=== PATIENT | male | born 1990 | race Caucasian/White ===

== ENCOUNTER 2020-03-11 08:43 | Outpatient (REF) | payer MEDICARE, MEDICAID, SELFPAY ==
[2020-03-11 09:17] LABS: MANUAL DIFF FLAG NO
[2020-03-11 09:23] LABS: Basophils Absolute Auto 0.1 X10*3/uL (0.0-0.2); Basophils Percent Auto 0.7 % (0-2); Eosinophils Absolute Auto 0.2 X10*3/uL (0.0-0.4); Eosinophils Percent Auto 2.5 % (0-4); Hematocrit 44.5 % (42-52); Hemoglobin 15.1 g/dl (14.0-18.0); Imm Gran Abs Auto 0.03 X10*3/uL (0.00-0.03); Imm Gran Pct Auto 0.4 % (0.0-0.4); Lymphocytes Absolute Auto 2.1 X10*3/uL (1.2-4.9); Lymphocytes Percent Auto 28.3 % (20-40); Mean Corpuscular HGB Conc 33.9 g/dl (31.0-36.0); Mean Corpuscular Hemoglobin 30.1 pg (27.0-33.0); Mean Corpuscular Volume 88.6 fL (80-98); Mean Platelet Volume 8.4 fL (9.4-12.4); Monocytes Absolute Auto 0.7 X10*3/uL (0.1-1.2); Monocytes Percent Auto 9.4 % (2-11); Neutrophils Absolute Auto 4.3 X10*3/uL (2.0-8.3); Neutrophils Percent Auto 58.7 % (45-73); Platelet Count 227 X10*3/uL (160-400); Red Blood Count 5.02 X10*6/uL (4.60-5.80); Red Cell Distribution Width 12.2 % (11.0-16.0); White Blood Count 7.2 X10*3/uL (4.8-10.8)
[2020-03-11 09:28] LABS: Estimated Average Glucose 111 mg/dL; Hemoglobin A1c % 5.5 %
[2020-03-11 09:50] LABS: Alanine Aminotransferase 56 U/L (0-40); Albumin Level 4.3 g/dL (3.5-5.0); Alkaline Phosphatase 95 U/L (39-117); Anion Gap 11 (12-20); Aspartate Amino Transferase 28 U/L (5-37); Bilirubin Total 1.4 mg/dL (0.0-1.0); Blood Urea Nitrogen 14 mg/dL (9-16); Calcium 9.4 mg/dL (8.4-10.2); Carbon Dioxide 26 mmol/L (22-29); Chloride 107 mmol/L (96-108); Cholesterol 196 mg/dL; Estimated Glomerular Filt Rate > 60; Glucose Fasting 100 mg/dL (60-99); HDL Cholesterol 33 mg/dL; LDL Cholesterol Calculated 115 mg/dl; Potassium 3.9 mmol/l (3.3-5.1); Sodium 140 mmol/L (135-145); Triglycerides 242 mg/dL
== END 2020-03-11 08:44 | disposition home or self-care (01) ==
LOC: HO.LAB 08:43
PROVIDERS: Visit Provider Physician Assistant
DX: Z13.1 Encounter for screening for diabetes mellitus (principal); M54.6 Pain in thoracic spine; E66.3 Overweight; Z13.220 Encounter for screening for lipoid disorders; Z68.25 Body mass index [BMI] 25.0-25.9, adult
CPT/HCPCS: 36415; 80053; 80061; 83036; 85025

== ENCOUNTER 2020-05-18 11:20 | Outpatient (REF) | payer MEDICARE, MEDICAID, SELFPAY ==
[2020-05-18 13:57] LABS: MANUAL DIFF FLAG NO
[2020-05-18 14:02] LABS: Basophils Absolute Auto 0.1 X10*3/uL (0.0-0.2); Basophils Percent Auto 0.8 % (0-2); Eosinophils Absolute Auto 0.2 X10*3/uL (0.0-0.4); Eosinophils Percent Auto 2.1 % (0-4); Hematocrit 46.7 % (42-52); Hemoglobin 15.6 g/dl (14.0-18.0); Imm Gran Abs Auto 0.03 X10*3/uL (0.00-0.03); Imm Gran Pct Auto 0.4 % (0.0-0.4); Lymphocytes Absolute Auto 1.7 X10*3/uL (1.2-4.9); Lymphocytes Percent Auto 23.4 % (20-40); Mean Corpuscular HGB Conc 33.4 g/dl (31.0-36.0); Mean Corpuscular Hemoglobin 29.7 pg (27.0-33.0); Mean Platelet Volume 8.9 fL (9.4-12.4); Monocytes Absolute Auto 0.7 X10*3/uL (0.1-1.2); Neutrophils Absolute Auto 4.6 X10*3/uL (2.0-8.3); Neutrophils Percent Auto 64.3 % (45-73); Platelet Count 242 X10*3/uL (160-400); Red Blood Count 5.25 X10*6/uL (4.60-5.80); White Blood Count 7.2 X10*3/uL (4.8-10.8)
[2020-05-18 14:14] LABS: Glucose Urine UA NEG (NEG); Leukocyte Esterase Urine NEG (NEG); Nitrite Urine NEG (NEG); Specific Gravity - Urine 1.025 (1.005-1.025); Urine Blood NEG (NEG); Urine Ketones NEG (NEG); Urine Protein NEG (NEG-TRACE)
[2020-05-18 14:17] LABS: Appearance Urine HAZY; Color Urine YELLOW
[2020-05-18 14:35] LABS: Alanine Aminotransferase 87 U/L (0-40); Albumin Level 4.6 g/dL (3.5-5.0); Alkaline Phosphatase 111 U/L (39-117); Anion Gap 12 (12-20); Aspartate Amino Transferase 34 U/L (5-37); Bilirubin Total 1.5 mg/dL (0.0-1.0); Blood Urea Nitrogen 15 mg/dL (9-16); Calcium 9.1 mg/dL (8.4-10.2); Carbon Dioxide 28 mmol/L (22-29); Chloride 103 mmol/L (96-108); Estimated Glomerular Filt Rate > 60; Glucose Random 91 mg/dL (60-115); Potassium 3.7 mmol/L (3.3-5.1); Sodium 139 mmol/L (135-145); Total Protein 7.4 g/dL (6.5-8.0)
[2020-05-18 14:43] LABS: Prostate Specific Antigen Scr 0.58 ng/mL (<0.05-4.0)
== END 2020-05-18 11:21 | disposition home or self-care (01) ==
LOC: HO.HMGCLDS 11:20
PROVIDERS: PCP Internal Medicine; Visit Provider Hospitalist
DX: R30.0 Dysuria (principal); Z12.5 Encounter for screening for malignant neoplasm of prostate
CPT/HCPCS: 36415; 80053; 81003; 84153; 85025

== ENCOUNTER 2021-02-27 10:32 | Outpatient (REF) | payer MEDICARE, MEDICAID, SELFPAY ==
[2021-02-27 11:45] LABS: Baso%MD 0.7 %; Eos%MD 1.9 %; Hematocrit 45.3 % (42.0-52.0); IG%MD 0.4 %; Lymph%MD 28.5 %; Mean Corpuscular HGB Conc 33.1 g/dl (31.0-36.0); Mean Corpuscular Hemoglobin 29.9 pg (27.0-33.0); Mean Corpuscular Volume 90.2 fL (80.0-98.0); Mean Platelet Volume 8.7 fL (9.4-12.4); Mono%MD 8.6 %; Neut%MD 59.9 %; Platelet Count 219 X10*3/uL (160-400); Red Blood Count 5.02 X10*6/uL (4.60-5.80); Red Cell Distribution Width 12.1 % (11.0-16.0); White Blood Count 7.3 X10*3/uL (4.8-10.8)
[2021-02-27 12:02] LABS: Estimated Average Glucose 111 mg/dL; Hemoglobin A1c % 5.5 %
[2021-02-27 12:18] LABS: Alanine Aminotransferase 111 U/L (0-40); Albumin Level 4.4 g/dL (3.5-5.0); Alkaline Phosphatase 102 U/L (39-117); Anion Gap 13 (12-20); Aspartate Amino Transferase 47 U/L (5-37); Bilirubin Total 1.8 mg/dL (0.0-1.0); Blood Urea Nitrogen 13 mg/dL (9-16); Calcium 9.4 mg/dL (8.4-10.2); Carbon Dioxide 24 mmol/L (22-29); Chloride 106 mmol/L (96-108); Cholesterol 178 mg/dL; Estimated Glomerular Filt Rate > 60; Glucose Fasting 96 mg/dL (60-99); HDL Cholesterol 32 mg/dL; LDL Cholesterol Calculated 110 mg/dl; Sodium 139 mmol/L (135-145); Total Protein 7.1 g/dL (6.5-8.0); Triglycerides 182 mg/dL
[2021-02-27 12:37] LABS: Prostate Specific Antigen Scr 0.51 ng/mL (<0.05-4.0)
[2021-02-27 13:25] LABS: Atypical Lymph Absolute Manual 0.1 x10*3/uL; Atypical Lymphs Percent Manual 1 % (0-6); Band Neutrophils Percent 0 % (3-5); Basophils Abs Manual 0.1 X10*3/uL (0.0-0.2); Basophils Percent Manual 2 % (0-2); Eosinophils Absolute Manual 0.2 X10*3/uL (0.0-0.4); Eosinophils Percent Manual 3 % (0-4); Lymphocytes Absolute Manual 1.7 X10*3/uL (1.2-4.9); Lymphocytes Percent Manual 23 % (20-40); Monocytes Absolute Manual 0.6 X10*3/uL (0.1-1.2); Monocytes Percent Manual 8 % (2-11); Neutrophils Absolute Manual 4.6 X10*3/uL (2.0-8.3); Neutrophils Percent Manual 63 % (45-73)
[2021-02-27 13:26] LABS: Platelet Estimate NORMAL (NORMAL); Platelet Morphology Comment NORMAL; RBC Morphology NORMAL
== END 2021-02-27 10:33 | disposition home or self-care (01) ==
LOC: HO.LAB 10:32
PROVIDERS: Visit Provider Nurse Practitioner Acute Care
DX: Z13.1 Encounter for screening for diabetes mellitus (principal); Z13.220 Encounter for screening for lipoid disorders; Z12.5 Encounter for screening for malignant neoplasm of prostate; E80.6 Other disorders of bilirubin metabolism
CPT/HCPCS: 36415; 80053; 80061; 83036; 84153; 85007; 85027

== ENCOUNTER 2021-03-30 07:47 | Outpatient (REF) | payer MEDICARE, MEDICAID, SELFPAY ==
--- NOTE | ~2021-03-30 | US_ITS ---
EXAMINATION: US ABDOMEN COMPLETE CLINICAL INFORMATION: Abnormal level of enzymes. COMPARISON: CT scan of the abdomen and pelvis March 2018 TECHNIQUE: Real-time imaging of the abdominal viscera. FINDINGS: PANCREAS: Normal. ABDOMINAL AORTA: The proximal, mid, and distal segments are normal in caliber. INFERIOR VENA CAVA: Visualized portions are normal. LIVER: Mild increased echogenicity no focal lesions. No intrahepatic or extrahepatic biliary dilatation. GALLBLADDER: Normal. The gallbladder is physiologically distended without evidence of stones, sludge, polyps, wall thickening or pericholecystic fluid. COMMON BILE DUCT: Normal in caliber measuring 0.32 cm in diameter. RIGHT KIDNEY: Normal. No hydronephrosis. No renal calculi or focal parenchymal lesions. The kidney measures 11 cm in maximum dimension. LEFT KIDNEY: Normal. No hydronephrosis. No renal calculi or focal parenchymal lesions. The kidney measures 11 cm in maximum dimension. SPLEEN: Normal. The spleen measures 13 cm in maximum dimension. FREE FLUID: None. US/US abdomen complete IMPRESSION: Increased echogenicity of the liver compatible with hepatic steatosis likely unchanged compared with CT March 2018 No acute abnormality
== END 2021-03-30 07:48 | disposition home or self-care (01) ==
LOC: HO.US 07:47
PROVIDERS: Visit Provider Nurse Practitioner Acute Care
DX: R74.8 Abnormal levels of other serum enzymes (principal)
CPT/HCPCS: 76700

== ENCOUNTER 2022-06-22 08:42 | Outpatient (REF) | payer MEDICARE, MEDICAID, SELFPAY ==
[2022-06-22 10:06] LABS: Alanine Aminotransferase 97 U/L (0-40); Albumin Level 4.1 g/dL (3.5-5.0); Alkaline Phosphatase 101 U/L (39-117); Anion Gap 13 (12-20); Aspartate Amino Transferase 50 U/L (5-37); Bilirubin Total 1.2 mg/dL (0.0-1.0); Blood Urea Nitrogen 13 mg/dL (9-16); Calcium 8.9 mg/dL (8.4-10.2); Carbon Dioxide 24 mmol/L (22-29); Chloride 109 mmol/L (96-108); Cholesterol 174 mg/dL; Estimated Glomerular Filt Rate > 60; Glucose Fasting 109 mg/dL (60-99); HDL Cholesterol 28 mg/dL; LDL Cholesterol Calculated 90 mg/dl; Sodium 142 mmol/L (135-145); Triglycerides 283 mg/dL
== END 2022-06-22 08:43 | disposition home or self-care (01) ==
LOC: HO.LAB 08:42
PROVIDERS: Visit Provider Nurse Practitioner Family
DX: E78.00 Pure hypercholesterolemia, unspecified (principal); Z13.1 Encounter for screening for diabetes mellitus
CPT/HCPCS: 36415; 80053; 80061

== ENCOUNTER 2023-03-25 14:14 | Outpatient (AMB) | payer MEDICARE, MEDICAID, SELFPAY ==
[2023-03-25 14:15] VITALS: BP 120/50; PULSE 75; O2SAT 97; BMI 31.4
--- NOTE | 2023-03-25 14:15 | A.OFFPC_ITS ---
Vital Signs 03/25/23 14:15 Height 5 ft 9 in Weight 212 lb 6 oz BMI 31.4 BP 120/50 L Blood Pressure Location Lt brachial Position Sitting Pulse 75 Pulse Source Pulse Oximeter Pulse Oximetry (%) 97 Oxygen Delivery Method Room Air Intake Visit Reasons: HLD, fatty liver Hot Dog Vendor Required: Yes Hot Dog Vendor Language: Sandal Parts Assembler Name: Mickie [id number] Information Interpreted: clinical only Accompanied by: Self / Same As Patient Allergies No Known Allergies [No Known Allergies*] Allergy (Verified 03/25/23 14:15) Medication List - Last Reconciled 03/25/23 by Sandra Love MD [HEARING AID As directed] Tobacco use date assessed: 03/25/23 Dental Screening Dental Screen Date: 03/25/23 Did you have a dental visit in the last 12 months?: No Did you have a dental problem in the last 6 months where you did not have access to dental care?: No Was dental information given to patient?: Yes HPI HLD, fatty liver HPI Details 32-year-old obese male who is deaf louisreji g hypercholesterolemia and fatty liver coming in for follow-up. Last seen in May 2021. Patient was recently seen by the nurse practitioner for an annual well visit and blood work was requested.Demetra [id number] InterpretPAtient is asking about vasectomy. [facility] Medical History (Updated 07/12/22 @ 09:11 by GUILHERME Peterson) Exposure to confirmed case of severe acute respiratory syndrome coronavirus 2 (SARS-CoV-2) infection Initial Medicare annual wellness visit Screening for prostate cancer Screening cholesterol level Rib pain on left side Elevated liver enzymes Dysuria Screening for hypercholesterolemia Screening for hypothyroidism Screening for diabetes mellitus (DM) Anal pruritus Annual physical exam Mesenteric lymphadenitis Protrusion of intervertebral disc of thoracic region Fracture of upper extremity Deaf mutism, congenital Overweight (BMI 25.0-29.9) Thoracic back pain Surgical History History of surgical removal of skin lesion History of arm fracture Family History Father No problems noted. Mother No problems noted. Social History Housing: Apartment Alcohol intake: never Patient Tobacco Use Status: Never used Tobacco e-Cigarette/Vaping Use: Never Used Second Hand Smoke Exposure: No service: No Current occupational status: employed Questionnaire Thrive Questionnaire Date Thrive assessed: 06/13/22 NICHOLAS-7 AMB Questionnaire NICHOLAS-7 Date NICHOLAS - 7 assessed: 06/13/22 Source: Developed by Drs. Terrence Baca, Lacie Muse, Saturnino Jesus and colleagues, with an educational lian from [employer]. Physical exam (Primary Care) Vital Signs: Last Vital Signs Pulse 75 03/25/23 14:15 BP 120/50 L 03/25/23 14:15 Pulse Ox 97 03/25/23 14:15 Oxygen Delivery Method Room Air 03/25/23 14:15 BMI result Body Mass Index 31.4 Tobacco/Smoking Status: Tobacco use Status Tobacco use date assessed 03/25/23 03/25/23 14:17 Patient Tobacco Use Status Never used Tobacco 03/25/23 14:17 e-Cigarette/Vaping Use Never Used 03/25/23 14:17 Thrive Assessment: Date of Thrive Assessment Date Thrive assessed 06/13/22 03/25/23 14:17 Const General: alert; No acute distress Eyes Conjunctivae: conjunctivae normal Resp Auscultation: clear to auscultation bilaterally Cardio Rate: regular rate Rhythm: regular rhythm GI Inspection: Yes normal to inspection Extrem General: Yes normal to inspection and No edema Assessment and Plan Assessment & Plan (1) Obesity (BMI 30.0-34.9): Code(s): E66.9 - Obesity, unspecified Plan: Diet and exercise (2) Hypercholesterolemia: Code(s): E78.00 - Pure hypercholesterolemia, unspecified Plan: Avoid fried foods, chicken skin, eggs, butter margarine, pastries and meat. Be it pork or beef they have a lot of cholesterol LDL goal of less than 130 and triglyceride of less than 150 may testing good (3) Fatty liver: Code(s): K76.0 - Fatty (change of) liver, not elsewhere classified Plan: Low-fat diet (4) Impaired fasting glucose: Code(s): R73.01 - Impaired fasting glucose Plan: Decrease the amount of carbohydrate intake, pasta, bread, rice and potatoes are all sugar and that is aside from all the sweet stuff, remember that fruits are good but they are Sweet also. (5) Thoracic back pain: Code(s): M54.6 - Pain in thoracic spine Plan: Keep active and try to lose the weight Orders: Orders Complete Blood Count Auto Diff 3 Months R73.01 - Impaired fasting glucose Comprehensive Met. Panel 3 Months R73.01 - Impaired fasting glucose Free T4 (Free Thyroxine) 3 Months R73.01 - Impaired fasting glucose Lipid Panel 3 Months E78.00 - Pure hypercholesterolemia, unspecified Hemoglobin A1c 3 Months R73.01 - Impaired fasting glucose Thyroid Stimulating Hormone 3 Months E78.00 - Pure hypercholesterolemia, unspecified Vitamin B12 and Folate 3 Months E78.00 - Pure hypercholesterolemia, unspecified Coding Level of Care Code Est Pt Level 4 (37444) Diagnoses Obesity (BMI 30.0-34.9) E66.9 Hypercholesterolemia E78.00 Fatty liver K76.0 Impaired fasting glucose R73.01 Thoracic back pain M54.6
== END 2023-03-25 15:15 | disposition home or self-care (01) ==
PROVIDERS: PCP Nurse Practitioner Family; Visit Provider Internal Medicine
DX: E78.00 Pure hypercholesterolemia, unspecified (principal); E66.9 Obesity, unspecified; Z68.31 Body mass index [BMI] 31.0-31.9, adult; K76.0 Fatty (change of) liver, not elsewhere classified; R73.01 Impaired fasting glucose; M54.6 Pain in thoracic spine
CPT/HCPCS: 99214

== ENCOUNTER 2023-04-17 11:52 | Outpatient (AMB) | payer MEDICARE, MEDICAID, SELFPAY ==
--- NOTE | 2023-04-17 13:44 | MHC.OFFWIV ---
Intake Vital Signs 04/17/23 13:46 Height 5 ft 9 in Weight 208 lb 6 oz BMI 30.8 BP 130/84 Blood Pressure Location Lt brachial Position Sitting Pulse 57 Pulse Source Pulse Oximeter Pulse Oximetry (%) 97 Oxygen Delivery Method Room Air Intake Visit Reasons: EST/left eye issue, left side of face feels weird Intake Note: Pt states he is her for Lt eye pain, started 2 days ago Patient Tobacco Use Status: Never used Tobacco Burr Sander Name: Majo [id number] Information Interpreted: clinical only Allergies No Known Allergies [No Known Allergies*] Allergy (Verified 04/17/23 13:44) Do you need a note to return to daycare/school/sports/work: No HPI HPI Comments History of Present Illness Details 32 y/o male presents to walk in clinic with c/o left face feeling weird sensation x 2 days. Reports that the skin on his left face has weird sensation compared to the right face. Pt unable to elaborate further to what Weird means or feels. Denies vision or speech problems. Denies paralysis or weakness. Denies any chronic medical conditions and denies taking medications routinely. [facility] Medical History (Updated 07/12/22 @ 09:11 by GUILHERME Peterson) Exposure to confirmed case of severe acute respiratory syndrome coronavirus 2 (SARS-CoV-2) infection Initial Medicare annual wellness visit Screening for prostate cancer Screening cholesterol level Rib pain on left side Elevated liver enzymes Dysuria Screening for hypercholesterolemia Screening for hypothyroidism Screening for diabetes mellitus (DM) Anal pruritus Annual physical exam Mesenteric lymphadenitis Protrusion of intervertebral disc of thoracic region Fracture of upper extremity Deaf mutism, congenital Overweight (BMI 25.0-29.9) Thoracic back pain Surgical History History of surgical removal of skin lesion History of arm fracture Family History Father No problems noted. Mother No problems noted. Social History Housing: Apartment Alcohol intake: never Patient Tobacco Use Status: Never used Tobacco e-Cigarette/Vaping Use: Never Used Second Hand Smoke Exposure: No service: No Current occupational status: employed Review of Systems Const All systems reviewed & are unremarkable except as noted in HPI and below ENT Reports Normal hearing present Neuro Reports Normal hearing present Physical Exam Vital Signs: Last Vital Signs Pulse 57 04/17/23 13:46 BP 130/84 04/17/23 13:46 Pulse Ox 97 04/17/23 13:46 Oxygen Delivery Method Room Air 04/17/23 13:46 BMI result Body Mass Index 30.8 Const Orientation/consciousness: patient oriented x3 HEENT Head: Yes normocephalic Ears: external ears normal General nose exam: Normal external nose present and Normal nasal mucous membranes and turbinates present Face and sinus: Yes sinuses nontender, Yes face symmetric, No erythema and No edema Mouth: Normal oral and palatal mucosa present Throat: Yes posterior oropharynx normal Eyes Pupils: Equal, round and reactive pupils present Neuro General: patient oriented x3, gait normal, Normal light touch and pain sensation, CN's II-XI intact bilaterally and normal sensation to monofilament Cranial nerves: Yes Facial sensation intact/muscles of mastication intact, Yes Intact sense of smell present, Yes Equal, round and reactive pupils present, Yes Normal facial strength present and Yes Normal hearing present Speech: Other speech findings present (Neuro) (Speech clear) Gait exam (Neuro): Normal gait present Motor exam (neuro): 5/5 motor strength present throughout Assessment & Plan Assessment & Plan (1) Impaired sensation: Code(s): R20.1 - Hypoesthesia of skin Plan: - Neuro exam normal, no signs of Stroke, no weakness. - Facial symmetry - Vision and hearing intact. - Educated on signs of Stroke and to report immediately to ED Coding Level of Care Code Est Pt Level 2 (74063) Diagnoses Impaired sensation R20.1 Time Spent (min) 15
[2023-04-17 13:46] VITALS: BP 130/84; PULSE 57; O2SAT 97; BMI 30.8
== END 2023-04-17 14:46 | disposition home or self-care (01) ==
PROVIDERS: PCP Nurse Practitioner Family; Visit Provider Nurse Practitioner Family
DX: R20.1 Hypoesthesia of skin (principal)
CPT/HCPCS: 99212

== ENCOUNTER 2023-05-10 08:18 | Outpatient (REF) | payer MEDICARE, MEDICAID, SELFPAY ==
[2023-05-10 09:01] LABS: MANUAL DIFF FLAG NO
[2023-05-10 09:17] LABS: Basophils Percent Auto 0.4 % (0-2); Eosinophils Absolute Auto 0.2 X10*3/uL (0.0-0.4); Eosinophils Percent Auto 2.2 % (0-4); Hematocrit 41.8 % (42.0-52.0); Hemoglobin 14.2 g/dl (14.0-18.0); Imm Gran Abs Auto 0.04 X10*3/uL (0.00-0.03); Imm Gran Pct Auto 0.5 % (0.0-0.4); Lymphocytes Percent Auto 26.8 % (20-40); Mean Corpuscular Hemoglobin 29.7 pg (27.0-33.0); Mean Corpuscular Volume 87.4 fL (80.0-98.0); Mean Platelet Volume 8.4 fL (9.4-12.4); Monocytes Absolute Auto 0.8 X10*3/uL (0.1-1.2); Monocytes Percent Auto 10.3 % (2-11); Neutrophils Absolute Auto 4.4 x10*3/uL (2.0-8.3); Neutrophils Percent Auto 59.8 % (45-73); Platelet Count 201 X10*3/uL (160-400); Red Blood Count 4.78 X10*6/uL (4.60-5.80); Red Cell Distribution Width 12.4 % (11.0-16.0); White Blood Count 7.3 X10*3/uL (4.8-10.8)
[2023-05-10 09:29] LABS: Estimated Average Glucose 105 mg/dL; Hemoglobin A1c % 5.3 % (<6.0)
[2023-05-10 10:49] LABS: Alanine Aminotransferase 89 U/L (0-40); Albumin Level 4.3 g/dL (3.5-5.0); Alkaline Phosphatase 92 U/L (39-117); Anion Gap 12 (12-20); Aspartate Amino Transferase 39 U/L (5-37); Bilirubin Total 1.6 mg/dL (0.0-1.0); Blood Urea Nitrogen 16 mg/dL (9-16); Calcium 9.4 mg/dL (8.4-10.2); Carbon Dioxide 26 mmol/L (22-29); Chloride 106 mmol/L (96-108); Cholesterol 170 mg/dL (<200); Estimated Glomerular Filt Rate > 60; Glucose Random 102 mg/dL (60-115); HDL Cholesterol 30 mg/dL (>40); LDL Cholesterol Calculated 116 mg/dL (<100); Potassium 3.9 mmol/L (3.3-5.1); Sodium 140 mmol/L (135-145); Total Protein 6.8 g/dL (6.5-8.0); Triglycerides 121 mg/dL (<150)
[2023-05-10 10:58] LABS: Free T4 (Free Thyroxine) 0.86 ng/dL (0.71-1.85); Thyroid Stimulating Hormone 1.19 uIU/mL (0.32-4.0)
[2023-05-10 11:10] LABS: Folate 7.2 ng/mL (> or = 4.0); Vitamin B12 648 pg/mL (200-900)
== END 2023-05-10 08:19 | disposition home or self-care (01) ==
LOC: HO.LAB 08:18
PROVIDERS: PCP Internal Medicine; Visit Provider Internal Medicine
DX: R73.01 Impaired fasting glucose (principal); E78.00 Pure hypercholesterolemia, unspecified
CPT/HCPCS: 36415; 80053; 80061; 82607; 82746; 83036; 84439; 84443; 85025

== ENCOUNTER 2023-06-23 14:26 | Outpatient (AMB) | payer MEDICARE, MEDICAID, SELFPAY ==
[2023-06-23 14:35] VITALS: BP 130/82; PULSE 62; O2SAT 98; BMI 29.7
--- NOTE | 2023-06-23 14:35 | MHC.PC.OV ---
Vital Signs 06/23/23 14:35 Height 5 ft 9 in Weight 201 lb 0.4 oz BMI 29.7 BP 130/82 Blood Pressure Location Lt brachial Position Sitting Pulse 62 Pulse Source Pulse Oximeter Pulse Oximetry (%) 98 Oxygen Delivery Method Room Air Intake Visit Reasons: 3 Month F/U Intake Note: Patient is here to follow up on 3 months Renal Medicine Physician Required: No Allergies No Known Allergies [No Known Allergies*] Allergy (Verified 06/23/23 14:49) Tobacco use date assessed: 06/23/23 Dental Screening Dental Screen Date: 06/23/23 Did you have a dental visit in the last 12 months?: No Did you have a dental problem in the last 6 months where you did not have access to dental care?: No HPI 3 Month F/U HPI Details 33-year-old overweight deaf and mute male with impaired glucose tolerance hypercholesterolemia fatty liver coming in for follow-up. Last seen in February 2023. Review of the notes March 2023 urgent care visit for weird sensation on the left face examination was negative and reassured. isis [id number] interpret [facility] Medical History (Updated 06/23/23 @ 15:08 by Sandra Love MD) Screening for diabetes mellitus Overweight (BMI 25.0-29.9) Exposure to confirmed case of severe acute respiratory syndrome coronavirus 2 (SARS-CoV-2) infection Initial Medicare annual wellness visit Screening for prostate cancer Screening cholesterol level Rib pain on left side Elevated liver enzymes Dysuria Screening for hypercholesterolemia Screening for hypothyroidism Screening for diabetes mellitus (DM) Anal pruritus Annual physical exam Mesenteric lymphadenitis Protrusion of intervertebral disc of thoracic region Fracture of upper extremity Deaf mutism, congenital Thoracic back pain Surgical History History of surgical removal of skin lesion History of arm fracture Family History Father No problems noted. Mother No problems noted. Social History Housing: Apartment Alcohol intake: never Patient Tobacco Use Status: Never used Tobacco e-Cigarette/Vaping Use: Never Used Second Hand Smoke Exposure: No service: No Current occupational status: employed Cognitive needs: No Hearing needs: No Vision needs: No Questionnaire PHQ-9 Over the last 2 weeks, how often have you been bothered by any of the following problems? 1. Little interest or pleasure in doing things: not at all 2. Feeling down, depressed, or hopeless: not at all 3. Trouble falling or staying asleep, or sleeping too much: not at all 4. Feeling tired or having little energy: not at all 5. Poor appetite or overeating: not at all 6. Feeling bad about yourself - or that you are a failure or have let yourself or your family down: not at all 7. Trouble concentrating on things, such as reading the newspaper or watching television: not at all 8. Moving or speaking so slowly that other people could have noticed. Or the opposite - being so fidgety or restless that you have been moving around a lot more than usual: not at all 9. Thoughts that you would be better off or of hurting yourself in some way: not at all Total score: 0 Depression Screening Interpretation: Negative Depression Screening Done: Yes [id number] - PHQ-9 Billing: Yes Source: Developed by Drs. Terrence Baca, Lacie Muse, Saturnino Jesus and colleagues, with an educational lian from [employer]. Thrive Questionnaire Date Thrive assessed: 06/23/23 I am a: Patient What is your living situation today?: I have a steady place to live Within the past 12 months, did the food you bought not last and you didn't have the money to get more?: Never true Within the past 12 months, did you worry whether your food would run out before you got money to buy more?: Never true Do you have trouble paying for medicines?: No Do you have trouble getting transportation to medical appointments?: No Do you have trouble paying your heating and electricity bill?: No Do you have trouble taking care of your child, family member or friend?: No Do you have trouble with day-to-day activities such as bathing, preparing meals, shopping, managing finances, etc.?: No Are you currently unemployed and looking for a job?: No Are you interested in more education?: No Please select the resources that you would like help with: None Currently or been in a relationship where the following occur: no concerns reported THRIVE Score: 0 AUDIT C Alcohol Use Questionnaire (AUDIT-C) 1. How often do you have a drink containing alcohol?: Never 3. How often do you have six or more drinks on one occasion?: Never Total Score: 0 Score Reviewed/Action Taken: No NICHOLAS-7 AMB Questionnaire NICHOLAS-7 Date NICHOLAS - 7 assessed: 06/23/23 Source: Developed by Drs. Terrence Baca, Lacie Muse, Saturnino Jesus and colleagues, with an educational lian from [employer]. Physical exam (Primary Care) Vital Signs: Last Vital Signs Pulse 62 06/23/23 14:35 BP 130/82 06/23/23 14:35 Pulse Ox 98 06/23/23 14:35 Oxygen Delivery Method Room Air 06/23/23 14:35 BMI result Body Mass Index 29.7 Tobacco/Smoking Status: Tobacco use Status Tobacco use date assessed 06/23/23 06/23/23 14:36 Patient Tobacco Use Status Never used Tobacco 06/23/23 14:36 e-Cigarette/Vaping Use Never Used 06/23/23 14:36 PHQ-9: PHQ-9 Score PHQ-9: Total score 0 06/23/23 14:51 Depression Screening Interpretation: Negative Thrive Assessment: Date of Thrive Assessment Date Thrive assessed 06/23/23 06/23/23 14:36 Currently or been in a relationship where the following occur: no concerns reported Const General: alert; No acute distress Eyes Conjunctivae: conjunctivae normal Resp Auscultation: clear to auscultation bilaterally Cardio Rate: regular rate Rhythm: regular rhythm GI Inspection: Yes normal to inspection Extrem General: Yes normal to inspection and No edema Assessment and Plan Assessment & Plan (1) Impaired fasting glucose: Code(s): R73.01 - Impaired fasting glucose Plan: Decrease the amount of carbohydrate intake, pasta, bread, rice and potatoes are all sugar and that is aside from all the sweet stuff, remember that fruits are good but they are Sweet also. (2) Hypercholesterolemia: Code(s): E78.00 - Pure hypercholesterolemia, unspecified Plan: Avoid fried foods, chicken skin, eggs, butter margarine, pastries and meat. Be it pork or beef they have a lot of cholesterol (3) Fatty liver: Code(s): K76.0 - Fatty (change of) liver, not elsewhere classified Plan: Low-fat diet and exercise (4) Overweight (BMI 25.0-29.9): Code(s): E66.3 - Overweight Plan: Continue with diet and exercise (5) Thoracic back pain: Code(s): M54.6 - Pain in thoracic spine Plan: Keep active Coding Level of Care Code Est Pt Level 4 (39884) Diagnoses Impaired fasting glucose R73.01 Hypercholesterolemia E78.00 Fatty liver K76.0 Overweight (BMI 25.0-29.9) E66.3 Thoracic back pain M54.6
== END 2023-06-23 16:06 | disposition home or self-care (01) ==
PROVIDERS: PCP Nurse Practitioner Family; Visit Provider Internal Medicine
DX: R73.01 Impaired fasting glucose (principal); E78.00 Pure hypercholesterolemia, unspecified; K76.0 Fatty (change of) liver, not elsewhere classified; E66.3 Overweight; M54.6 Pain in thoracic spine
CPT/HCPCS: 99214

== ENCOUNTER 2024-04-15 11:17 | Outpatient (AMB) | payer MEDICARE, MEDICAID, SELFPAY ==
--- NOTE | 2024-04-15 11:25 | A.OFFVIS_ITS ---
Intake Vital Signs 04/15/24 11:28 Height 5 ft 9 in Weight 215 lb 6 oz BMI 31.8 BP 110/70 Blood Pressure Location Lt brachial Position Sitting Pulse 101 H Pulse Source Pulse Oximeter Temp 97.1 F Temp Source Skin Pulse Oximetry (%) 96 Oxygen Delivery Method Room Air Intake Visit Reasons: AWV Intake Note: Patient is here for an Annual Wellness Visit. Pt decline flu shot today. Spinning Frame Tender Required: Yes Spinning Frame Tender Language: [employer] Consultant Services: Spinning Frame Tender Present Spinning Frame Tender Name: Rea ([id number]) Information Interpreted: non-clinical & clinical Technician Plant And Maintenance: Technician Plant And Maintenance offered & declined Accompanied by: Self / Same As Patient Allergies No Known Allergies [No Known Allergies*] Allergy (Verified 04/15/24 11:50) Medication List - Last Reconciled 04/15/24 by Melody Williamson PA-C [HEARING AID As directed] HPI AWV HPI Details 33-year-old deaf and mute male with past medical history of impaired glucose tolerance, hypercholesterolemia, fatty liver disease last seen by Dr. Love 05/2023 coming in for annual exam. retail personal banker Rea [id number] was used for the duration of this appointment. Patient having gained 14 lb since his last visit states he has been eating a diet rich and carbs. He tells us 3 months ago he was seen in the ED for eye redness was given drops and redness resolved. He also saw his eye doctor for similar concern and was given lubricant eyedrops but states his symp toms have resolved at this time. [facility] Medical History Screening for diabetes mellitus Overweight (BMI 25.0-29.9) Exposure to confirmed case of severe acute respiratory syndrome coronavirus 2 (SARS-CoV-2) infection Initial Medicare annual wellness visit Screening for prostate cancer Screening cholesterol level Rib pain on left side Elevated liver enzymes Dysuria Screening for hypercholesterolemia Screening for hypothyroidism Screening for diabetes mellitus (DM) Anal pruritus Annual physical exam Mesenteric lymphadenitis Protrusion of intervertebral disc of thoracic region Fracture of upper extremity Deaf mutism, congenital Thoracic back pain Surgical History History of surgical removal of skin lesion History of arm fracture Family History Father No problems noted. Mother No problems noted. Social History Housing: Apartment Alcohol intake: never Patient Tobacco Use Status: Never used Tobacco e-Cigarette/Vaping Use: Never Used Second Hand Smoke Exposure: No service: No Current occupational status: employed Cognitive needs: No Hearing needs: No Vision needs: No Questionnaire Medicare Wellness Checkup What [age] your [age]?: 65-69 (33) What gender do you identify with?: male During the past 4 weeks, how much have you been bothered by emotional problems such as feeling anxious, depressed, irritable, sad or downhearted, and blue?: not at all During the past 4 weeks, has your physical & emotional health limited your s ocial activities with family, friends, neighbors, or groups?: not at all During the past 4 weeks, how much bodily pain have you generally had?: no pain During the past 4 weeks, was someone available to help you if you needed & wanted help?: no, not at all During the past 4 weeks, what was the hardest physical activity you could do for at least 2 minutes?: very heavy Can you get to places out of walking distance without help? (For eg., can you travel alone on buses, taxis or drive your car?): Yes Can you go shopping for groceries or clothes without someone's help?: Yes Can you prepare your own meals?: Yes Can you do your housework without help?: Yes Because of any health problems, do you need the help of another person with your personal care needs such as eating, bathing, dressing or getting around the house?: No Can you handle your own money without help?: Yes During the past 4 weeks, how would you rate your health in general?: excellent During the past 4 weeks how have things been going for you?: very well; could hardly better Are you having difficulties driving your car?: no Do you always fasten your seat belt when you are in a car?: yes, usually During past 4 weeks, have you been bothered by the following: never: Falling or dizzy when standing up, Sexual problems?, Trouble eating well?, Teeth or denture problems?, Problems using the telephone? and Tiredness or fatigue? Have you fallen 2 or more times in the past year?: No Are you afraid of falling?: Yes Are you a smoker?: no During the past 4 weeks, how many drinks of wine, beer, or other alcoholic beverages did you have?: no alcohol at all Do you exercise for about 20 minutes 3 or more times a week?: no, I usually do not exercise this much Have you been given information to help with the following?: yes: Keeping track of your medications? and no: Hazards in your house that might hurt you? How often do you have trouble taking medicines the way you have been told to take them?: I do not have to take medicine How confident are you that you can control & manage most of your health prob lems?: very confident What is your race?: White PHQ-9 Over the last 2 weeks, how often have you been bothered by any of the following problems? 1. Little interest or pleasure in doing things: not at all 2. Feeling down, depressed, or hopeless: not at all 3. Trouble falling or staying asleep, or sleeping too much: not at all 4. Feeling tired or having little energy: not at all 5. Poor appetite or overeating: not at all 6. Feeling bad about yourself - or that you are a failure or have let yourself or your family down: not at all 7. Trouble concentrating on things, such as reading the newspaper or watching television: not at all 8. Moving or speaking so slowly that other people could have noticed. Or the opposite - being so fidgety or restless that you have been moving around a lot more than usual: not at all 9. Thoughts that you would be better off or of hurting yourself in some way: not at all Total score: 0 Depression Screening Interpretation: Negative Depression Screening Done: Yes Source: Developed by Drs. Terrence Baca, Lacie Muse, Saturnino Jesus and colleagues, with an educational lian from [employer]. Thrive Questionnaire Date Thrive assessed: 04/15/24 I am a: Patient What is your living situation today?: I have a steady place to live Within the past 12 months, did the food you bought not last and you didn't have the money to get more?: Never true Within the past 12 months, did you worry whether your food would run out before you got money to buy more?: Never true Do you have trouble paying for medicines?: No Do you have trouble getting transportation to medical appointments?: No Do you have trouble paying your heating and electricity bill?: No Do you have trouble taking care of your child, family member or friend?: No Do you have trouble with day-to-day activities such as bathing, preparing meals, shopping, managing finances, etc.?: No Are you currently unemployed and looking for a job?: No Are you interested in more education?: No Please select the resources that you would like help with: None Currently or been in a relationship where the following occur: No concerns reported THRIVE Score: 0 NICHOLAS-7 AMB Questionnaire NICHOLAS-7 Date NICHOLAS - 7 assessed: 04/15/24 Feeling nervous, anxious, or on edge: 0 = Not at all Not being able to stop or control worryin = Not at all Worrying too much about different things: 0 = Not at all Trouble relaxin = Not at all Being so restless that it is hard to sit still: 0 = Not at all Becoming easily annoyed or irritable: 0 = Not at all Feeling afraid as if something awful might happen: 0 = Not at all Total NICHOLAS-7 score (0-4 normal; 5-9 mild; 10-14 moderate; 15-21 severe): 0 Source: Developed by Drs. Terrence Baca, Lacie Muse, Saturnino Jesus and colleagues, with an educational lian from [employer]. AUDIT C Alcohol Use Questionnaire (AUDIT-C) 1. How often do you have a drink containing alcohol?: Never Total Score: 0 Review of Systems Const Denies body aches, Denies fatigue, Denies fever(s), Denies frequent falls, Denies headache(s) and Denies weakness Eyes Reports no additional complaints and Denies change in vision ENT Denies dizziness, Denies facial pain, Denies headache(s) and Denies nasal congestion Card Denies chest pain, Denies syncope, Denies irregular heart rhythm, Denies leg edema, Denies lightheadedness and Denies dyspnea Resp Denies cough and Denies dyspnea GI Denies abdominal pain, Denies constipation, Denies dyspepsia, Denies diarrhea, Denies nausea and Denies vomiting Denies dysuria, Denies urinary frequency, Denies urinary hesitancy and Denies urinary urgency Musc Denies back pain and Denies myalgias Skin/Breast Reports system reviewed and no additional complaints, except as documented Neuro Denies dizziness, Denies syncope, Denies frequent falls, Denies headache(s) and Denies weakness Psych Reports no additional complaints Endo Denies fatigue Physical Exam Vital Signs: Last Vital Signs Temp 97.1 F 04/15/24 11:28 Pulse 101 H 04/15/24 11:28 BP 110/70 04/15/24 11:28 Pulse Ox 96 04/15/24 11:28 Oxygen Delivery Method Room Air 04/15/24 11:28 BMI result Body Mass Index 31.8 Const General: cooperative, healthy appearing, comfortable and no acute distress Orientation/consciousness: patient oriented x3 HEENT Head: Yes normocephalic Ears: hearing grossly normal bilaterally, external ears normal, TM's normal bilaterally and EAC's normal General nose exam: Normal external nose present Face and sinus: Yes normal facial exam and Yes sinuses nontender Mouth: Normal oral and palatal mucosa present and tongue normal Throat: Yes posterior oropharynx normal Eyes General: appearance normal, both eyes and all related structures Conjunctivae: conjunctivae normal Pupils: Equal, round and reactive pupils present EOM: EOMs intact bilaterally and No Nystagmus present Neck Neck: Yes normal visual inspection, Yes full ROM and Yes no lymphadenopathy Chest Chest palpation & inspection: normal inspection of the chest Resp Effort & Inspection: normal respiratory effort Auscultation: clear to auscultation bilaterally, no crackles, no rales, no rhonchi, no wheezes and breath sounds present Cardio Rate: regular rate Rhythm: regular rhythm Peripheral pulses: radial pulses present and dorsalis pedis present GI Inspection: Yes normal to inspection and No Abdominal wall edema Palpation (GI): Soft to palpation, not firm and nontender Auscultation: normal bowel sounds Rectal Exam - Male: Yes deferred General: Yes no CVA tenderness Back/Spine/Pelvis Back: no CVA tenderness Skin General skin exam: no rashes or lesions noted Neuro Other: Patient is cognitively intact and able to make informed decisions about his health. General: patient oriented x3 Cranial nerves: Yes Equal, round and reactive pupils present, Yes Midline tongue present, Yes Ability to bilaterally elevate shoulders present and No Nystagmus present Gait exam (Neuro): Normal gait present Extrem General: Yes normal to inspection, Yes full ROM, No no pedal edema and No edema Psych Speech and movement: Normal speech and movement present Affect: normal affect Insight: Good insight present (Psych) Judgement: Good judgement present (Psych) Assessment & Plan Assessment & Plan (1) Overweight (BMI 25.0-29.9): Code(s): E66.3 - Overweight Plan: Healthy diet and regular exercise is encouraged. (2) Impaired fasting glucose: Code(s): R73.01 - Impaired fasting glucose Plan: Decrease the amount of carbohydrates such as pasta, bread, rice, and potatoes and limit the amount of sweets. Although fruits are generally healthy they should be eaten in moderation as they are still high in sugar. Ordered for updated blood work (3) Hypercholesterolemia: Code(s): E78.00 - Pure hypercholesterolemia, unspecified Plan: Avoid foods that are high in cholesterol such as red meat, fried foods, eggs and baked goods. Triglyceride goal of less than 150 and LDL goal of less than 130. Ordered for updated blood work (4) Fatty liver: Code(s): K76.0 - Fatty (change of) liver, not elsewhere classified Plan: Healthy diet and regular exercise is encouraged. Ordered for updated blood work (5) Deaf mutism, congenital: Code(s): H91.3 - Deaf nonspeaking, not elsewhere classified Plan: Patient wears hearing aids. (6) Protrusion of intervertebral disc of thoracic region: Comment: T11-12 Code(s): M51.24 - Other intervertebral disc displacement, thoracic region Plan: Denies any back pain at this time use Tylenol or ibuprofen as needed for pain. (7) Annual wellness visit: Code(s): Z00.00 - Encounter for general adult medical examination without abnormal findings Plan: Patient is up-to-date on all recommended routine screenings for his age. Patient is due for tetanus vaccine and flu shot which were declined today. Ordered for updated blood work and we will follow up yearly or sooner pending blood work results or if new problems arise. Plan This note was constructed using voice recognition software. While every effort has been made to ensure accuracy and registered occupational therapist, still areas may have been included sometimes these areas may affect the content or meeting of the given symptoms. Total time spent caring for the patient today was 30 minutes. This includes time spent before the visit reviewing the chart, time spent during the visit, and time spent after the visit and documentation. Orders: Orders Hemoglobin A1c Today E11.65 - Type 2 diabetes mellitus with hyperglycemia, R73.01 - Impaired fasting glucose Vitamin B12 and Folate Today Z00.00 - Encounter for general adult medical examination without abnormal findings Vitamin D 25-OH Total Today Z00.00 - Encounter for general adult medical examination without abnormal findings Complete Blood Count Auto Diff Today Z00.00 - Encounter for general adult medical examination without abnormal findings Lipid Panel Today E78.00 - Pure hypercholesterolemia, unspecified TSH reflex Free T4 Today Z00.00 - Encounter for general adult medical examination without abnormal findings Comprehensive Met. Panel Today R73.01 - Impaired fasting glucose, Z00.00 - Encounter for general adult medical examination without abnormal findings Quality Reporting (2019) Depression/Bipolar (159/160/161/177) PHQ-9: Total score: 0 Coding Level of Care Code Medicare First (G0438) Diagnoses Overweight (BMI 25.0-29.9) E66.3 Impaired fasting glucose R73.01 Hypercholesterolemia E78.00 Fatty liver K76.0 Deaf mutism, congenital H91.3 Protrusion of intervertebral disc of thoracic region M51.24 Annual wellness visit Z00.00
[2024-04-15 11:28] VITALS: BP 110/70; PULSE 101; TEMP 36.2; O2SAT 96; BMI 31.8
== END 2024-04-15 12:11 | disposition home or self-care (01) ==
PROVIDERS: PCP Internal Medicine
DX: Z00.00 Encounter for general adult medical examination without abnormal findings (principal); E66.3 Overweight; R73.01 Impaired fasting glucose; E78.00 Pure hypercholesterolemia, unspecified; K76.0 Fatty (change of) liver, not elsewhere classified; H91.3 Deaf nonspeaking, not elsewhere classified; M51.24 Other intervertebral disc displacement, thoracic region